=== PATIENT | female | born 1960 | race Caucasian/White ===

== ENCOUNTER 2018-06-20 14:51 | Emergency (ER) | payer SELFPAY ==
[2018-06-20] MEDS ORDERED: HYDRALAZINE HCL 20 MG/ML VIAL ONE (16:12)
--- NOTE | 2018-06-20 16:16 | EKG ---
Test Date: 2018-06-20 Test Time: 15:36:51 Physician Specialist: REJI MEASUREMENT RESULTS: Intervals: Rate: 58 CO: 206 QRSD: 82 QT: 406 QTc: 398 [place]: P: 68 CO: 206 QRS: 64 T: 68 INTERPRETIVE STATEMENTS: Sinus bradycardia Otherwise normal ECG No previous ECG available for comparison Electronically Signed On 06-20-18 16:16:11 CHANGE COORDINATOR by Charli Poole
[2018-06-20 16:40] LABS: Urine Blood NEGATIVE (NEG); Urine Glucose NEGATIVE (NEG); Urine Protein NEGATIVE (NEG)
[2018-06-20 16:40] LABS: Absolute Lymphocytes (CBC) 1.8 K/uL (0.7-4.9); Absolute Monocytes 0.5 K/uL (0.1-1.3); Absolute Neutrophil 5.5 K/uL (1.8-8.0); Basophils % 1.3 % (0-1.3); Eosinophils % 2.3 % (0-4.4); Hematocrit 41.3 % (36.0-45.0); Lymphocytes % 22.5 % (15.3-44.8); Monocytes % 6.3 % (3.3-12.3); RBC Red Blood Cell Count 4.57 M/uL (3.86-4.86)
--- NOTE | 2018-06-20 16:41 | RAD REPORT ---
EXAM DESCRIPTION: CT - Head Brain Wo Cont - 06/20/2018 4:34 pm CLINICAL HISTORY: Headache, hypertension COMPARISON: None. TECHNIQUE: Axial 5 mm thick images of the head were obtained without IV contrast. All CT scans are performed using dose optimization technique as appropriate and may include automated exposure control or mA/KV adjustment according to patient size. FINDINGS: No intracranial hemorrhage, mass, edema or shift of mid-line structures. No acute infarcti on changes seen. No abnormal extra-axial fluid collections. Ventricles are normal. Mastoid air cells and visualized portions of the paranasal sinuses are clear. No acute bony findings. IMPRESSION: Negative non-contrast CT head examination.
[2018-06-20 16:42] LABS: Protime INR 0.95
[2018-06-20 16:42] LABS: Urine Bacteria <20 /HPF (<20); Urine Culture Reflex Order NOT NEEDED; Urine RBC <5 /HPF (NONE SEEN)
[2018-06-20 16:54] LABS: ALT/SGPT 30 U/L (12-78); AST/SGOT 22 U/L (15-37); Albumin 4.2 g/dL (3.4-5.0); Alkaline Phosphatase 77 U/L (45-117); BUN Blood Urea Nitrogen 13 mg/dL (7-18); Bicarbonate 29 mmol/L (21-32); Bilirubin Direct 0.1 mg/dL (0-0.2); Bilirubin Total 0.3 mg/dL (0.2-1.0); Glucose Level 102 mg/dL (74-106); Magnesium 2.2 mg/dL (1.8-2.4); NT PRO-BNP 226 pg/mL (<125); Potassium 3.6 mmol/L (3.5-5.1); Protein, Total 8.1 g/dL (6.4-8.2); Sodium Level 142 mmol/L (136-145); Troponin (Emerg Dept Use Only) < 0.02 ng/mL (0.0-0.045)
--- NOTE | 2018-06-20 17:00 | RAD REPORT ---
EXAM DESCRIPTION: RAD - Chest Single View - 06/20/2018 4:24 pm CLINICAL HISTORY: Chest pain, hypertension COMPARISON: None. TECHNIQUE: AP portable chest image was obtained 1622 hours . FINDINGS: Lungs are clear. Heart and vasculature are normal. No measurable pleural effusion and no p neumothorax. No acute bony abnormality seen. No acute aortic findings suspected. IMPRESSION: No acute cardiopulmonary process.
[2018-06-20] MEDS ORDERED: ACETAMINOPHEN 500 MG TAB ONE (17:31)
[2018-06-20] MEDS ORDERED: LISINOPRIL 20 MG TAB ONE (17:31)
[2018-06-20] MEDS ORDERED: NA CHLORIDE 0.9% 1,000 ML ONE (17:32)
[2018-06-20] MEDS ORDERED: METOPROLOL TAR 25 MG TAB ONE (19:00)
--- NOTE | 2018-06-20 19:48 | EDPHYS ---
Physician Documentation [facility] Name: Breanna Evans Age: 57 yrs Sex: Female : 1960 Arrival Date: 06/20/2018 Time: 14:55 Bed 13 Private MD: None, None ED Physician Rudy Auguste HPI: 06/20 16:05 This 57 yrs old Female presents to ER via Ambulatory with complaints of High cp Blood Pressure. 16:05 The patient has elevated blood pressure and discovered this at home. cp 16:05 Onset: The symptoms/episode began/occurred 2 day(s) ago. Associated signs and symptoms: cp Pertinent positives: headache, Pertinent negatives: chest pain, dizziness, dyspnea, visual changes, weakness. Severity of symptoms: in the emergency department the blood pressure is unchanged, despite home interventions. The patient has been recently seen by a physician: in [place] [facility], 2 day(s) ago, with similar presenting complaints. Historical: - Allergies: 15:03 Codeine; sv 15:03 HCTZ; sv 15:03 amlodipine; sv - Home Meds: 15:06 lovastatin 20 mg Oral tab 2 tabs nightly [Active]; lisinopril 20 mg Oral tab 1 tab once sv daily [Active]; clonidine HCl 0.1 mg Oral tab 1 tab 2 times per day [Active]; - PMHx: 15:03 Hypertension; sv - Immunization history:: Adult Immunizations unknown. - Social history:: Smoking status: unknown. - Ebola Screening: : No symptoms or risks identified at this time. ROS: 16:08 Constitutional: Negative for body aches, chills, fever, poor PO intake. cp 16:08 Eyes: Negative for injury, pain, redness, and discharge. cp 16:08 ENT: Negative for drainage from ear(s), ear pain, sore throat, difficulty swallowing, difficulty handling secretions. 16:08 Neck: Negative for pain with movement, pain at rest, stiffness, tenderness. 16:08 Cardiovascular: Negative for chest pain, edema, palpitations. 16:08 Respiratory: Negative for cough, shortness of breath, wheezing. 16:08 Abdomen/GI: Negative for abdominal pain, nausea, vomiting, and diarrhea, black/tarry stool, rectal bleeding. 16:08 : Negative for urinary symptoms. 16:08 Skin: Negative for cellulitis, rash. 16:08 Neuro: Positive for headache, Negative for altered mental status, dizziness, numbness, speech changes, weakness. 16:08 All other systems are negative. Exam: 15:45 ECG was reviewed by the Attending Physician. cp 16:20 Constitutional: The patient appears in no acute distress, alert, awake, cp non-diaphoretic, non-toxic, well developed, well nourished. 16:20 Head/Face: Normocephalic, atraumatic. Eyes: Pupils equal round and reactive to light, cp extra-ocular motions intact. Lids and lashes normal. Conjunctiva and sclera are non-icteric and not injected. Cornea within normal limits. Periorbital areas with no swelling, redness, or edema. ENT: Nares patent. No nasal discharge, no septal abnormalities noted. Tympanic membranes are normal and external auditory canals are clear. Oropharynx with no redness, swelling, or masses, exudates, or evidence of obstruction, uvula midline. Mucous membranes moist. Neck: Trachea midline, no thyromegaly or masses palpated, and no cervical lymphadenopathy. Supple, full range of motion without nuchal rigidity, or vertebral point tenderness. No Meningismus. Chest/axilla: Normal chest wall appearance and motion. Nontender with no deformity. No lesions are appreciated. 16:20 Cardiovascular: Rate: normal, Rhythm: regular, Pulses: Pulses are 2+ in right radial artery and left radial artery. Heart sounds: murmur, not appreciated, rub, not appreciated, gallop, not appreciated, Edema: is not appreciated, JVD: is not appreciated. 16:20 Respiratory: the patient does not display signs of respiratory distress, Respirations: normal, no use of accessory muscles, no retractions, no splinting, no tachypnea, labored breathing, is not present, Breath sounds: are clear throughout, no decreased breath sounds, no stridor, no wheezing. 16:20 Abdomen/GI: Inspection: abdomen appears normal, Bowel sounds: normal, in all quadrants, Palpation: abdomen is soft and non-tender, in all quadrants, rebound tenderness, is not appreciated, voluntary guarding, is not appreciated, involuntary guarding, is not appreciated. 16:20 Skin: cellulitis, is not appreciated, no rash present. 16:20 Neuro: Orientation: to person, place \T\ time. Mentation: is normal, Cerebellar function: is grossly normal, Motor: is normal, Sensation: no obvious gross deficits. Vital Signs: 15:03 BP 245 / 93 RA Sitting (auto/reg); Pulse 63; Resp 18; Temp 97.7; Pulse Ox 98% ; Weight sv 74.39 kg; Height 5 ft. 2 in. (157.48 cm); 15:06 BP 233 / 77 LA Sitting (auto/lg); sv 15:37 BP 228 / 73; Pulse 64; Resp 16 S; Pulse Ox 95% on R/A; Pain 2/10; jl7 16:27 BP 179 / 68; Pulse 67; Resp 16 S; Pulse Ox 97% on R/A; jl7 17:00 BP 185 / 78; Pulse 67; Resp 16 S; Pulse Ox 97% on R/A; jl7 18:05 BP 191 / 78; Pulse 70; Resp 16 S; Pulse Ox 96% on R/A; jl7 18:45 BP 190 / 71; Pulse 73; Resp 16 S; Pulse Ox 97% on R/A; jl7 19:35 BP 143 / 57; Pulse 79; Resp 14; Pulse Ox 96% on R/A; tl2 20:05 BP 187 / 80; Pulse 71; Resp 17; Pulse Ox 95% on R/A; tl2 20:21 BP 176 / 76; Pulse 72; Resp 20; Pulse Ox 99% on R/A; tl2 15:03 Body Mass Index 30.00 (74.39 kg, 157.48 cm) sv MDM: 15:45 Patient medically screened. cp 16:00 Differential diagnosis: hypertensive crisis, Malignant HTN, CVA, intracerebral cp hemorrhage, acute DE. 19:45 Data reviewed: vital signs, nurses notes, lab test result(s), EKG, radiologic studies, cp CT scan, plain films. 19:45 Counseling: I had a detailed discussion with the patient and/or guardian regarding: the cp historical points, exam findings, and any diagnostic results supporting the discharge/admit diagnosis, the presence of at least one elevated blood pressure reading (>120/80) during this emergency department visit, lab results, radiology results, the need for outpatient follow up, for definitive care, a family practitioner. Response to treatment: the patient's symptoms have markedly improved after treatment, VSS. Blood pressure improved with IV fluids and meds, and as a result, I will discharge patient. 06/20 15:55 Order name: Basic Metabolic Panel; Complete Time: 16:56 cp 02/ 17:06 Interpretation: Normal except: GFR 67. cp / 15:55 Order name: CBC with Diff; Complete Time: 16:54 cp 06/20 15:55 Order name: LFT's; Complete Time: 16:56 cp 06/20 18:12 Interpretation: Normal except: GLOB 3.9. cp 06/20 15:55 Order name: Magnesium; Complete Time: 16:56 cp 06/20 15:55 Order name: NT PRO-BNP; Complete Time: 16:56 cp / 17:06 Interpretation: Abnormal: NT PRO-BNP 226. cp 06/20 15:55 Order name: PT-INR; Complete Time: 16:54 cp 06/20 15:55 Order name: Troponin (emerg Dept Use Only); Complete Time: 16:56 cp 06/20 15:55 Order name: XRAY Chest (1 view); Complete Time: 17:05 cp 06/20 17:05 Interpretation: Report review. cp 06/20 15:55 Order name: CT Head Brain wo Cont; Complete Time: 16:54 cp 06/20 15:55 Order name: Urine Microscopic Only; Complete Time: 16:54 cp 06/20 18:11 Interpretation: Normal except: SQEPI 5-10. cp / 16:22 Order name: Urine Dipstick--Ancillary (enter results); Complete Time: 16:54 eb 06/20 15:55 Order name: EKG; Complete Time: 15:56 cp 06/20 15:55 Order name: Cardiac monitoring; Complete Time: 16:21 cp 06/20 15:55 Order name: EKG - Nurse/Tech; Complete Time: 16:21 cp 06/20 15:55 Order name: IV Saline Lock; Complete Time: 16:22 cp 06/20 15:55 Order name: Labs collected and sent; Complete Time: 16:22 cp / 15:55 Order name: O2 Per Protocol; Complete Time: 16:22 cp / 15:55 Order name: O2 Sat Monitoring; Complete Time: 16:22 cp 06/20 15:55 Order name: Blood Pressure Recheck: bilateral upper extremity; Complete Time: 15:58 cp 06/20 15:55 Order name: Urine Dipstick-Ancillary (obtain specimen); Complete Time: 16:21 cp EC:45 Rate is 58 beats/min. Rhythm is regular. LA interval is prolonged at 206 msec. QRS cp interval is normal. QT interval is normal. Interpreted by me. Reviewed by me. Administered Medications: 16:15 Drug: hydrALAZINE 10 mg Route: IV; Rate: calculated rate; Site: right antecubital; jl7 16:30 Follow up: Response: No adverse reaction; Blood pressure is lowered jl7 17:30 Drug: Lisinopril 20 mg Route: PO; jl7 18:46 Follow up: Response: Blood pressure is unchanged jl7 17:30 Drug: Tylenol 1000 mg Route: PO; jl7 18:30 Follow up: Response: No adverse reaction; Pain is decreased jl7 17:30 Drug: NS 0.9% 1000 ml Route: IV; Rate: 1 bolus; Site: right forearm; jl7 20:23 Follow up: IV Status: Completed infusion; IV Intake: 1000ml tl2 18:45 Drug: Metoprolol 25 mg Route: PO; jl7 20:24 Follow up: Response: No adverse reaction tl2 19:15 Drug: hydrALAZINE 10 mg Route: IV; Rate: calculated rate; Site: right forearm; jl7 20:24 Follow up: Response: Blood pressure is lowered; IV Status: Completed infusion tl2 Disposition: 06/20/18 19:47 Discharged to Home. Impression: Hypertensive heart disease. - Condition is Stable. - Discharge Instructions: Hypertension, How to Take Your Blood Pressure, [id number], Managing Your Hypertension. - Prescriptions for Metoprolol Tartrate 25 mg Oral Tablet - take 1 tablet by ORAL route At bedtime with a meal; 30 tablet. Lisinopril 20 mg Oral Tablet - take 2 tablet by ORAL route once daily; 60 tablet. - Medication Reconciliation Form, Thank You Letter, Antibiotic Education, Prescription Opioid Use form. - Follow up: Private Physician; When: 2 - 3 days; Reason: hypertension. - Problem is an ongoing problem. - Symptoms have improved. Addendum: 06/23/2018 07:47 Co-signature as Attending Physician, Rudy Auguste MD I agree with the assessment and [facility] plan of care. Signatures: Dispatcher [employer] Olga Lidia White, RN RN sv Rudy Auguste MD MD [facility] Elias Morales PA PA cp Jessica Sommers RN RN tl2 Brooke Guerrier RN RN jl7 Corrections: (The following items were deleted from the chart) 06/20 16:01 15:55 Urine Test ordered. melissa jl7 20:24 19:47 06/20/2018 19:47 Discharged to Home. Impression: Hypertensive heart disease. tl2 Condition is Stable. Forms are Medication Reconciliation Form, Thank You Letter, Antibiotic Education, Prescription Opioid Use. Follow up: Private Physician; When: 2 - 3 days; Reason: hypertension. Problem is an ongoing problem. Symptoms have improved. cp
--- NOTE | 2018-06-20 19:48 | ER ---
Nurse's Notes [facility] Name: Breanna Evans Age: 57 yrs Sex: Female : 1960 Arrival Date: 06/20/2018 Time: 14:55 Bed 13 Private MD: None, None Diagnosis: Hypertensive heart disease Presentation: 06/20 15:00 Presenting complaint: Patient states: HTN x 2 days, went to [place] ER and was sv discharged. Went to see her PCP and they gave her Clonidine and sent her home. Proair is the only new med she started. Reports right arm cold and headache. Transition of care: patient was not received from another setting of care. Onset of symptoms was June 2018. Care prior to arrival: None. 15:00 Method Of Arrival: Ambulatory sv 15:00 Acuity: KAMARI 2 sv 16:30 Risk Assessment: Do you want to hurt yourself or someone else? Patient reports no jl7 desire to harm self or others. Initial Sepsis Screen: Does the patient meet any 2 criteria? No. Patient's initial sepsis screen is negative. Does the patient have a suspected source of infection? No. Patient's initial sepsis screen is negative. Triage Assessment: 15:03 General: Appears in no apparent distress. comfortable, Behavior is calm, cooperative, sv appropriate for age. Neuro: Level of Consciousness is awake, alert, obeys commands, Oriented to person, place, time, situation, Gait is steady. Respiratory: Respiratory effort is even, unlabored, Respiratory pattern is regular, symmetrical. Derm: Skin is pink, warm \T\ dry. Historical: - Allergies: 15:03 Codeine; sv 15:03 HCTZ; sv 15:03 amlodipine; sv - Home Meds: 15:06 lovastatin 20 mg Oral tab 2 tabs nightly [Active]; lisinopril 20 mg Oral tab 1 tab once sv daily [Active]; clonidine HCl 0.1 mg Oral tab 1 tab 2 times per day [Active]; - PMHx: 15:03 Hypertension; sv - Immunization history:: Adult Immunizations unknown. - Social history:: Smoking status: unknown. - Ebola Screening: : No symptoms or risks identified at this time. Screenin:37 Abuse screen: Denies threats or abuse. Denies injuries from another. Nutritional jl7 screening: No deficits noted. Tuberculosis screening: No symptoms or risk factors identified. 16:30 Fall Risk IV access (20 points). Total Zepeda Fall Scale indicates No Risk (0-24 pts). jl7 Assessment: 15:37 General: Appears in no apparent distress. uncomfortable, Behavior is calm, cooperative, jl7 appropriate for age. Pain: Complains of pain in INGRAM Pain does not radiate. Pain currently is 2 out of 10 on a pain scale. Quality of pain is described as pressure, Pain began 2-3 days ago. Is continuous. Neuro: Level of Consciousness is awake, alert, obeys commands, Oriented to person, place, time, situation. Cardiovascular: Denies chest pain, lightheadedness, palpitations, shortness of breath, Heart tones S1 S2 present Patient's skin is warm and dry. Respiratory: Airway is patent Respiratory effort is even, unlabored, Respiratory pattern is regular, symmetrical, Breath sounds are clear bilaterally. GI: No signs and/or symptoms were reported involving the gastrointestinal system. : No signs and/or symptoms were reported regarding the genitourinary system. EENT: No signs and/or symptoms were reported regarding the EENT system. Derm: Skin is pink, warm \T\ dry. Musculoskeletal: No signs and/or symptoms reported regarding the musculoskeletal system. 17:00 Reassessment: Patient appears in no apparent distress at this time. No changes from jl7 previously documented assessment. Patient and/or family updated on plan of care and expected duration. Pain level reassessed. Patient is alert, oriented x 3, equal unlabored respirations, skin warm/dry/pink. 18:05 Reassessment: Patient appears in no apparent distress at this time. No changes from jl7 previously documented assessment. Patient and/or family updated on plan of care and expected duration. Pain level reassessed. Patient is alert, oriented x 3, equal unlabored respirations, skin warm/dry/pink. 19:10 General: Appears in no apparent distress. uncomfortable, Behavior is calm, cooperative, tl2 appropriate for age. Pain: Complains of pain in headache. Neuro: Level of Consciousness is awake, alert, obeys commands, Oriented to person, place, time, situation. Cardiovascular: Denies chest pain. Respiratory: Airway is patent Respiratory effort is even, unlabored, Respiratory pattern is regular, symmetrical. GI: No signs and/or symptoms were reported involving the gastrointestinal system. : No signs and/or symptoms were reported regarding the genitourinary system. Derm: Skin is pink, warm \T\ dry. 20:21 Reassessment: Patient appears in no apparent distress at this time. Patient and/or tl2 family updated on plan of care and expected duration. Pain level reassessed. Patient is alert, oriented x 3, equal unlabored respirations, skin warm/dry/pink. PA notified of final set of vitals, ordered to continue with discharge. Pt verbalized understanding of discharge instructions, need for follow up and prescription usage. Vital Signs: 15:03 BP 245 / 93 RA Sitting (auto/reg); Pulse 63; Resp 18; Temp 97.7; Pulse Ox 98% ; Weight sv 74.39 kg; Height 5 ft. 2 in. (157.48 cm); 15:06 BP 233 / 77 LA Sitting (auto/lg); sv 15:37 BP 228 / 73; Pulse 64; Resp 16 S; Pulse Ox 95% on R/A; Pain 2/10; jl7 16:27 BP 179 / 68; Pulse 67; Resp 16 S; Pulse Ox 97% on R/A; jl7 17:00 BP 185 / 78; Pulse 67; Resp 16 S; Pulse Ox 97% on R/A; jl7 18:05 BP 191 / 78; Pulse 70; Resp 16 S; Pulse Ox 96% on R/A; jl7 18:45 BP 190 / 71; Pulse 73; Resp 16 S; Pulse Ox 97% on R/A; jl7 19:35 BP 143 / 57; Pulse 79; Resp 14; Pulse Ox 96% on R/A; tl2 20:05 BP 187 / 80; Pulse 71; Resp 17; Pulse Ox 95% on R/A; tl2 20:21 BP 176 / 76; Pulse 72; Resp 20; Pulse Ox 99% on R/A; tl2 15:03 Body Mass Index 30.00 (74.39 kg, 157.48 cm) sv Vitals: 19:35 Cardiac Rhythm Assessment Sinus rhythm. tl2 ED Course: 14:55 Patient arrived in ED. sb2 14:55 None, None is Private Physician. sb2 15:02 Triage completed. sv 15:03 Arm band placed on. sv 15:15 Brooke Guerrier RN is Primary Nurse. jl7 15:37 Patient has correct armband on for positive identification. Placed in gown. Bed in low jl7 position. Call light in reach. Side rails up X 1. satellite project site monitor on. Pulse ox on. NIBP on. Warm blanket given. 15:37 EKG done, by ecologist technician. reviewed by Rudy Auguste MD. jl7 15:45 Elias Morales PA is PHCP. cp 15:45 Rudy Auguste MD is Attending Physician. cp 16:22 Initial lab(s) drawn, by id, sent to lab. Inserted saline lock: 20 gauge in right jl7 antecubital area, using aseptic technique. Blood collected. 16:25 XRAY Chest (1 view) In Process Unspecified. EDMS 16:34 CT Head Brain wo Cont In Process Unspecified. EDMS 16:44 CT completed. Patient tolerated procedure well. Patient moved to CT via wheelchair. eh Patient moved back from CT. 19:17 Report given to WIN Lopez. jl7 20:21 No provider procedures requiring assistance completed. IV discontinued, intact, tl2 bleeding controlled, No redness/swelling at site. Pressure dressing applied. Administered Medications: 16:15 Drug: hydrALAZINE 10 mg Route: IV; Rate: calculated rate; Site: right antecubital; jl7 16:30 Follow up: Response: No adverse reaction; Blood pressure is lowered jl7 17:30 Drug: Lisinopril 20 mg Route: PO; jl7 18:46 Follow up: Response: Blood pressure is unchanged jl7 17:30 Drug: Tylenol 1000 mg Route: PO; jl7 18:30 Follow up: Response: No adverse reaction; Pain is decreased jl7 17:30 Drug: NS 0.9% 1000 ml Route: IV; Rate: 1 bolus; Site: right forearm; jl7 20:23 Follow up: IV Status: Completed infusion; IV Intake: 1000ml tl2 18:45 Drug: Metoprolol 25 mg Route: PO; jl7 20:24 Follow up: Response: No adverse reaction tl2 19:15 Drug: hydrALAZINE 10 mg Route: IV; Rate: calculated rate; Site: right forearm; jl7 20:24 Follow up: Response: Blood pressure is lowered; IV Status: Completed infusion tl2 Intake: 20:23 IV: 1000ml; Total: 1000ml. tl2 Outcome: 19:47 Discharge ordered by . cp 20:21 Discharged to home ambulatory, with family. tl2 20:21 Condition: stable 20:21 Discharge instructions given to patient, family, Instructed on discharge instructions, follow up and referral plans. medication usage, Demonstrated understanding of instructions, follow-up care, medications, Prescriptions given X 2. 20:24 Patient left the ED. tl2 Signatures: Dispatcher [employer] EDMS Olga Lidia Chao RN RN sv Damian Barbosa Corey, PA PA cp Knox, Taylor, RN RN tl2 Brooke Guerrier RN RN jl7 Anita Dorantes sb2 Corrections: (The following items were deleted from the chart) 15:04 15:00 Acuity: KAMARI 3 sv sv 15:06 15:03 BP 245 / 93; Pulse 63bpm; Resp 18bpm; Pulse Ox 98%; Temp 97.7F; 74.39 kg; Height sv 5 ft. 2 in.; BMI: 30.0; sv
== END 2018-06-20 20:24 | disposition home or self-care (01) ==
LOC: ER 14:51
DX: I11.9 Hypertensive heart disease without heart failure (principal); I10 Essential (primary) hypertension; Z88.5 Allergy status to narcotic agent; Z88.8 Allergy status to other drugs, medicaments and biological substances
CPT/HCPCS: 36415; 70450; 71045; 80048; 80076; 81003; 81015; 83735; 83880; 84484; 85025; 85610; 93005; 96361; 96365; 99285; J0360; J7030

== ENCOUNTER 2018-06-21 20:03 | Emergency (ER) | payer SELFPAY ==
--- OUTSIDE RECORDS SUMMARY | 2018-06-21 20:06 | XMS REPORT ---
:1960 [facility] Address [address] [place] [address] Dr. Foote [address] [place] [id number] Care Team Providers Name Role Phone Unavailable Unavailable Unavailable Problems This patient has no known problems. Allergies, Adverse Reactions, Alerts This patient has no known allergies or adverse reactions. Medications This patient has no known medications.
[2018-06-21] MEDS ORDERED: cloNIDine HCl 0.1 MG TAB ONE (20:54)
--- NOTE | 2018-06-21 21:32 | EDPHYS ---
Physician Documentation [facility] Name: Breanna Evans Age: 57 yrs Sex: Female : 1960 Arrival Date: 06/21/2018 Time: 20:05 Bed 6 Private MD: ED Physician Ruel Zendejas HPI: 06/21 20:37 This 57 yrs old Female presents to ER via Ambulatory with complaints of High kb Blood Pressure. 20:37 The patient has been recently seen by a physician:. kb 20:41 The patient has elevated blood pressure and discovered this at home, with a home kb device. Onset: The symptoms/episode began/occurred 3 day(s) ago. Associated signs and symptoms: The patient has no apparent associated signs or symptoms. Severity of symptoms: At its worst the blood pressure was moderate, 238 mm Hg. The patient has experienced similar episodes in the past, chronically. Pt states she checked her blood pressure 3 days ago and it was over 200 so she went to [place] [facility]. They got it down to 170 and let her go home. No diagnostics done at that time. States she went to her PCP 2 days ago and they increased her lisinopril. Yesterday, bp was still elevated so she came to this ER and had a workup completed with blood work, chest x-ray and CT brain (all wnl, reviewed). Has been checking her BP every hour today as instructed and it was over 200 for the past couple of hours so she came back. Denies headache, visual disturbances, chest pain and shortness of breath. Medications were changed last night as well. Started on metoprolol, increased lisinopril and discontinued clonidine. . Historical: - Allergies: 20:25 amlodipine; tl2 20:25 Codeine; tl2 20:25 HCTZ; tl2 - Home Meds: 20:25 lisinopril 40 mg oral tab [Active]; lovastatin 20 mg Oral tab 2 tabs nightly [Active]; tl2 metoprolol tartrate 25 mg Oral tab 1 tab once daily [Active]; - PMHx: 20:25 Hypertension; Hyperlipidemia; tl2 - PSHx: 20:25 ; tl2 - Immunization history:: Adult Immunizations up to date. - Social history:: Smoking status: Patient/guardian denies using tobacco, the patient reports quitting approximately 5 years ago. - Ebola Screening: : No symptoms or risks identified at this time. ROS: 20:34 Constitutional: Negative for fever, chills, and weight loss, Cardiovascular: Negative kb for chest pain, palpitations, and edema, Respiratory: Negative for shortness of breath, cough, wheezing, and pleuritic chest pain, Abdomen/GI: Negative for abdominal pain, nausea, vomiting, diarrhea, and constipation, Back: Negative for injury and pain, MS/Extremity: Negative for injury and deformity, Skin: Negative for injury, rash, and discoloration, Neuro: Negative for headache, weakness, numbness, tingling, and seizure. Exam: 20:36 Constitutional: This is a well developed, well nourished patient who is awake, alert, kb and in no acute distress. Head/Face: Normocephalic, atraumatic. ENT: Nares patent. No nasal discharge, no septal abnormalities noted. Tympanic membranes are normal and external auditory canals are clear. Oropharynx with no redness, swelling, or masses, exudates, or evidence of obstruction, uvula midline. Mucous membranes moist. Neck: Trachea midline, no thyromegaly or masses palpated, and no cervical lymphadenopathy. Supple, full range of motion without nuchal rigidity, or vertebral point tenderness. No Meningismus. Chest/axilla: Normal chest wall appearance and motion. Nontender with no deformity. No lesions are appreciated. Cardiovascular: Regular rate and rhythm with a normal S1 and S2. No gallops, murmurs, or rubs. Normal PMI, no JVD. No pulse deficits. Respiratory: Lungs have equal breath sounds bilaterally, clear to auscultation and percussion. No rales, rhonchi or wheezes noted. No increased work of breathing, no retractions or nasal flaring. Abdomen/GI: Soft, non-tender, with normal bowel sounds. No distension or tympany. No guarding or rebound. No evidence of tenderness throughout. Skin: Warm, dry with normal turgor. Normal color with no rashes, no lesions, and no evidence of cellulitis. MS/ Extremity: Pulses equal, no cyanosis. Neurovascular intact. Full, normal range of motion. Neuro: Awake and alert, GCS 15, oriented to person, place, time, and situation. Cranial nerves II-XII grossly intact. Motor strength 5/5 in all extremities. Sensory grossly intact. Cerebellar exam normal. Normal gait. Vital Signs: 20:25 BP 198 / 83; Pulse 65; Resp 18; Temp 97.9(O); Pulse Ox 95% on R/A; Weight 74.39 kg; tl2 Height 5 ft. 2 in. (157.48 cm); Pain 3/10; 21:00 BP 161 / 101; Pulse 67; Resp 18; Pulse Ox 95% ; tl2 21:30 BP 154 / 84; Pulse 62; Resp 18; Pulse Ox 95% on R/A; tl2 20:25 Body Mass Index 30.00 (74.39 kg, 157.48 cm) tl2 MDM: 20:24 Patient medically screened. kb 20:34 Data reviewed: vital signs, nurses notes. Data interpreted: Pulse oximetry: on room air kb is 95 %. Interpretation: normal. 21:31 Counseling: I had a detailed discussion with the patient and/or guardian regarding: the kb historical points, exam findings, and any diagnostic results supporting the discharge/admit diagnosis, the need for outpatient follow up, a family practitioner, to return to the emergency department if symptoms worsen or persist or if there are any questions or concerns that arise at home. Administered Medications: 20:50 Drug: cloNIDine 0.2 mg Route: PO; tl2 Disposition: 22:25 Co-signature as Attending Physician, Ruel Zendejas MD. kaitlyn Disposition: 06/21/18 21:31 Discharged to Home. Impression: Essential (primary) hypertension. - Condition is Stable. - Discharge Instructions: Hypertension, [id number], Managing Your Hypertension. - Medication Reconciliation Form, Thank You Letter, Antibiotic Education, Prescription Opioid Use form. - Follow up: Emergency Department; When: As needed; Reason: Worsening of condition. Follow up: Private Physician; When: 2 - 3 days; Reason: Recheck today's complaints, Continuance of care, Re-evaluation by your physician. Signatures: Valentine Sullivan, CIGARETTE PACKING MACHINE OPERATOR-Drew CHINO-Ruel Morales MD MD pkAni Veras RN RN ed1 Jessica Sommers RN RN tl2 Corrections: (The following items were deleted from the chart) 21:40 21:31 06/21/2018 21:31 Discharged to Home. Impression: Essential (primary) ed1 hypertension. Condition is Stable. Forms are Medication Reconciliation Form, Thank You Letter, Antibiotic Education, Prescription Opioid Use. Follow up: Emergency Department; When: As needed; Reason: Worsening of condition. Follow up: Private Physician; When: 2 - 3 days; Reason: Recheck today's complaints, Continuance of care, Re-evaluation by your physician. kb
--- NOTE | 2018-06-21 21:32 | ER ---
Nurse's Notes [facility] Name: Breanna Evans Age: 57 yrs Sex: Female : 1960 Arrival Date: 06/21/2018 Time: 20:05 Bed 6 Private MD: Diagnosis: Essential (primary) hypertension Presentation: 06/21 20:20 Presenting complaint: Patient states: Pt was seen at [facility] 2 days ago for high tl2 BP, saw PCP and had medication increased. BP continued to be high and pt was seen here yesterday, given hydralazine and prescription to increase lisinopril dosage. BP readings tonight read systolic in 200's for over an hour. Pt reports pain in right arm. Denies headache or blurry vision. Transition of care: patient was not received from another setting of care. Onset of symptoms was June 18, 2018. Risk Assessment: Do you want to hurt yourself or someone else? Patient reports no desire to harm self or others. Initial Sepsis Screen: Does the patient meet any 2 criteria? No. Patient's initial sepsis screen is negative. Does the patient have a suspected source of infection? No. Patient's initial sepsis screen is negative. Care prior to arrival: None. 20:20 Method Of Arrival: Ambulatory tl2 20:20 Acuity: KAMARI 3 tl2 Triage Assessment: 20:25 General: Appears in no apparent distress. uncomfortable, Behavior is calm, cooperative, tl2 appropriate for age. Pain: Complains of pain in right arm Quality of pain is described as sharp. Neuro: Level of Consciousness is awake, alert, obeys commands. Cardiovascular: Denies chest pain. Respiratory: Airway is patent Respiratory effort is even, unlabored, Respiratory pattern is regular, symmetrical. GI: No signs and/or symptoms were reported involving the gastrointestinal system. : No signs and/or symptoms were reported regarding the genitourinary system. Derm: Skin is pink, warm \T\ dry. Historical: - Allergies: 20:25 amlodipine; tl2 20:25 Codeine; tl2 20:25 HCTZ; tl2 - Home Meds: 20:25 lisinopril 40 mg oral tab [Active]; lovastatin 20 mg Oral tab 2 tabs nightly [Active]; tl2 metoprolol tartrate 25 mg Oral tab 1 tab once daily [Active]; - PMHx: 20:25 Hypertension; Hyperlipidemia; tl2 - PSHx: 20:25 ; tl2 - Immunization history:: Adult Immunizations up to date. - Social history:: Smoking status: Patient/guardian denies using tobacco, the patient reports quitting approximately 5 years ago. - Ebola Screening: : No symptoms or risks identified at this time. Screenin:29 Abuse screen: Denies threats or abuse. Nutritional screening: No deficits noted. tl2 Tuberculosis screening: No symptoms or risk factors identified. Fall Risk None identified. Assessment: 20:29 General: see triage assessment. tl2 21:37 Reassessment: Patient appears in no apparent distress at this time. Patient and/or ed1 family updated on plan of care and expected duration. Pain level reassessed. Patient is alert, oriented x 3, equal unlabored respirations, skin warm/dry/pink. Patient states feeling better. Patient states symptoms have improved. Vital Signs: 20:25 BP 198 / 83; Pulse 65; Resp 18; Temp 97.9(O); Pulse Ox 95% on R/A; Weight 74.39 kg; tl2 Height 5 ft. 2 in. (157.48 cm); Pain 3/10; 21:00 BP 161 / 101; Pulse 67; Resp 18; Pulse Ox 95% ; tl2 21:30 BP 154 / 84; Pulse 62; Resp 18; Pulse Ox 95% on R/A; tl2 20:25 Body Mass Index 30.00 (74.39 kg, 157.48 cm) tl2 ED Course: 20:05 Patient arrived in ED. es 20:20 Jessica Sommers RN is Primary Nurse. tl2 20:22 Triage completed. tl2 20:24 Valentine Sullivan [facility]-C [facility]. kb 20:24 Ruel Zendejas MD is Attending Physician. kb 20:25 Arm band placed on right wrist. tl2 20:29 Patient has correct armband on for positive identification. Placed in gown. Bed in low tl2 position. Call light in reach. Side rails up X 1. Adult w/ patient. 21:37 No provider procedures requiring assistance completed. Patient did not have IV access ed1 during this emergency room visit. Administered Medications: 20:50 Drug: cloNIDine 0.2 mg Route: PO; tl2 Outcome: 21:31 Discharge ordered by MD. juarez 21:37 Discharged to home ambulatory. ed1 21:37 Condition: good 21:37 Discharge instructions given to patient, Instructed on discharge instructions, follow up and referral plans. Demonstrated understanding of instructions, follow-up care. 21:40 Patient left the ED. ed1 Signatures: Valentine Sullivan, INSTRUCTOR KNITTING-C MATTI-Sierra Rosenberg Erika RN RN ed1 Jessica Sommers RN RN tl2
--- NOTE | 2018-06-22 10:53 | EKG ---
Test Date: 2018-06-21 Test Time: 20:40:11 Resident In Diagnostic Radiology: PEDRO MEASUREMENT RESULTS: Intervals: Rate: 55 HI: 200 QRSD: 80 QT: 410 QTc: 392 [place]: P: 50 HI: 200 QRS: 51 T: 63 INTERPRETIVE STATEMENTS: Sinus bradycardia Otherwise normal ECG Compared to ECG 06/20/2018 15:36:51 No significant changes Electronically Signed On 06-22-18 10:52:50 BUILDING MAINTENANCE SUPERVISOR by Charli Poole
== END 2018-06-21 21:40 | disposition home or self-care (01) ==
LOC: ER 20:03
DX: I10 Essential (primary) hypertension (principal); E78.5 Hyperlipidemia, unspecified; Z88.5 Allergy status to narcotic agent; Z88.8 Allergy status to other drugs, medicaments and biological substances
CPT/HCPCS: 93005; 99283